=== PATIENT | female | born 1980 | race Caucasian/White ===

== ENCOUNTER 2018-04-21 20:53 | Emergency (ER) | payer OTHER ==
[~2018-04-21] VITALS: Ht 167.6 cm; Wt 99.8 kg
[2018-04-21] MEDS ORDERED: AMOXICILLIN 50500 M1 PO (21:23)
[2018-04-21] MEDS ORDERED: HYDROCODONE-ACE15 ML PO (21:23)
[2018-04-21 21:42] VITALS: BP 124/82
== END 2018-04-21 21:44 | disposition home or self-care (01) ==
LOC: M.ERS 20:53
DX: J02.9 Acute pharyngitis, unspecified (principal); F17.210 Nicotine dependence, cigarettes, uncomplicated